=== PATIENT | male | born 1990 | race African-American/Black ===

== ENCOUNTER 2016-07-20 13:44 | Emergency (ER) | payer SELFPAY ==
[~2016-07-20] VITALS: Wt 90.0 kg
[2016-07-20] MEDS ORDERED: ONDANSETRON 4 MG INJ IV STA (14:01)
[2016-07-20] MEDS ORDERED: morphine 4 MG/ML VIAL IV STA (14:01)
[2016-07-20 14:33] LABS: ADD SCAN DIFF NO
[2016-07-20 14:38] LABS: ADD UMIC YES; BASOPHILS % 0.2 % (0.0-2.0); EOSINOPHILS % 0.2 % (0.0-7.0); HEMATOCRIT 41.2 % (42.0-52.0); HEMOGLOBIN 13.9 g/dl (14.0-18.0); LYMPHOCYTES % 17.4 % (15.0-51.0); MEAN CORPUSCULAR HEMOGLOBIN 30.1 pg (29.0-33.0); MEAN CORPUSCULAR HGB CONC 33.7 g/dl (32.0-37.0); MEAN CORPUSCULAR VOLUME 89.2 fl (82.0-101.0); MEAN PLATELET VOLUME 9.2 fl (7.4-10.4); MONOCYTE # 0.4 10^3/ul (0.3-0.9); MONOCYTES % 7.3 % (0.0-11.0); NEUTROPHIL # 4.3 10^3/ul (1.6-7.5); NEUTROPHILS % 74.4 % (39.0-77.0); PLATELET COUNT 196 10^3/UL (140-415); RED BLOOD COUNT 4.62 10^6/ul (4.70-6.10); RED CELL DISTRIBUTION WIDTH 12.6 % (11.5-14.5); URINE BILIRUBIN (Dip) NEGATIVE (NEGATIVE); URINE BLOOD (Dip) TRACE (NEGATIVE); URINE COLOR LT. YELLOW (YELLOW); URINE GLUCOSE (Dip) NEGATIVE (NEGATIVE); URINE KETONES (Dip) NEGATIVE (NEGATIVE); URINE LEUKOCYTE ESTERASE (Dip) NEGATIVE (NEGATIVE); URINE NITRITE (Dip) NEGATIVE (NEGATIVE); URINE TOTAL PROTEIN (Dip) TRACE (NEGATIVE); URINE UROBILINOGEN (Dip) 0.2 E.U./dL (0.1-1.0); WHITE BLOOD COUNT 5.8 10^3/ul (4.8-10.8)
[2016-07-20 14:51] LABS: BACTERIA,URINE MODERATE
[2016-07-20 14:52] LABS: ALBUMIN 4.4 g/dl (3.3-4.9)
[2016-07-20 14:53] LABS: POTASSIUM 3.6 mmol/L (3.5-5.1)
[2016-07-20 14:55] LABS: ALBUMIN/GLOBULIN RATIO 1.69; BILIRUBIN,INDIRECT 0.8 mg/dl (0-1.1); BILIRUBIN,TOTAL 0.8 mg/dl (0.2-1.3); CREATININE 1.48 mg/dl (0.61-1.24)
[2016-07-20 14:56] LABS: CALCIUM 9.4 mg/dl (8.4-10.2)
[2016-07-20] MEDS ORDERED: KETOROLAC 30 MG INJ IV STA (16:00)
[2016-07-20] MEDS ORDERED: SOD CHLORIDE 0.9% 1,000 ML IV ONE (16:00)
--- NOTE | 2016-07-20 16:07 | RADRPT ---
PROCEDURE: CT Abdomen and Pelvis without contrast. CLINICAL INDICATION: Vomiting and abdominal pain. TECHNIQUE: Multiple contiguous axial CT images of the abdomen and pelvis were obtained without the administration of intravenous contrast. Coronal and sagittal reconstructions were also performed. CTDIvol (mGy): 15.12; Total Exam DLP (mGy-cm): 899.59. One or more of the following dose reduction techniques were utilized: - Automated exposure control. - Adjustment of the mA and/or kV according to patient size. - Use of iterative reconstruction technique. COMPARISON: None. FINDINGS: Limited imaging of the lower thorax is unremarkable. The liver and spleen are homogeneous in density. The gallbladder, pancreas and adrenal glands are u nremarkable. The kidneys are symmetric in size. There is a small amount of fluid within the right collecting syst em without substantial dilatation. This is secondary to a 2 mm stone at the ureterovesical junction . There is a subtle similar stone within the lower pole of the right kidney. There are no stones w ithin the left collecting system. There is no perinephric edema. The abdominal aorta is normal in caliber. There is no periaortic / retroperitoneal lymphadenopathy. The stomach and small and large intestines are unremarkable aside from scattered intraluminal metall ic densities within the stomach and small intestines. The appendix is normal. There are no focal i nflammatory changes of the mesentery. There is no mesenteric lymphadenopathy. There is no ascites. The bladder, prostate and seminal vesicles are unremarkable. There is a small amount of free pelvic fluid. There is no pelvic sidewall or inguinal lymphadenopathy. Skeletal structures are unremarkable. Body wall soft tissues are unremarkable. IMPRESSION: Tiny 2 mm stone of the right ureterovesical junction with mild fluid within the right collecting sys tem. RPTAT: HLST .Carmen Alvarado MD, MD Date Time Electronically viewed and signed by .Carmen Alvarado MD, MD on 07/20/2016 16:07 .T/
[2016-07-20] MEDS ORDERED: HYDR-906 PO (16:26)
[2016-07-20] MEDS ORDERED: TAMS-14 PO (16:26)
[2016-07-20] MEDS ORDERED: IBUP-1542 PO (16:26)
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
[2016-07-20 18:03] VITALS: BP 141/74; PULSE 88; RESP 20; TEMP 97.7
== END 2016-07-20 18:12 | disposition home or self-care (01) ==
LOC: FTE 13:44
DX: N23 Unspecified renal colic (principal); F17.210 Nicotine dependence, cigarettes, uncomplicated; R11.10 Vomiting, unspecified
CPT/HCPCS: 36415; 74176; 80053; 81001; 83690; 85025; 87086; 96374; 96375; 99285; J1885; J2270; J2405; J7030; 81003